=== PATIENT | male | born 1990 | race Caucasian/White ===

== ENCOUNTER 2018-10-24 06:23 | Inpatient (IN) ==
--- NOTE | 2018-10-24 07:11 | PROVIDER DOCUMENTATION ---
HPI-Chest Pain - General Chief Complaint: Chest Pain Stated Complaint: CP,INSECT BITE Time Seen by Provider: 10/24/18 06:52 Allergies/Adverse Reactions: Patient Allergies Allergy/AdvReac Type Severity Reaction Status Date / Time No Known Allergies Allergy Verified 10/24/18 07:09 Home Medications: Home Medication List Medication Instructions Recorded Confirmed Last Taken Type Fluticasone 50 Mcg Nasal [place] 1 spray INTRANASAL DAILY 10/24/18 10/24/18 Unknown History [Flonase] Melatonin 10 mg PO HS PRN PRN 10/24/18 10/24/18 Unknown History - History of Present Illness-CP Nature of Presenting Problem: Presents to the with complaints of central chest pain that woke him up from sleep. He states it feels like a tightening and goes up to his neck and down to his epigastric area. He endorses some SOB associated with it. He states this has never happened to him before. He denies any previous cardiac history, no stress test or cardiac cath. He denies any family history of early cardiac disease. He denies any diaphoresis, nausea, vomiting associated with it. He denies any new medications and denies any anabolic steroids or supplements. He did not try anything at home. He had ribs for dinner with a lot of BBQ sauce on it last night. He states that it is improving but is still there a little bit. He states he feels it all the time but does wax and wane. Nothing makes it better or worse. He states that he additionally was seen at an urgent care center for a bug bite on his buttocks and was given antibiotics that he thinks is doxycycline. He states that this is not bothering him. Location: reports: substernal, central Chest Pain Radiation: reports: neck, epigastric Quality of Pain: reports: tightness Severity in ED: moderate Onset/Duration: just prior to arrival Timing: still present, improving Context/Activities at Onset: reports: sleep Modifying Factors: improves with: nothing Review of Systems - Adult - REVIEW OF SYSTEMS - ADULT Constitutional: reports: no symptoms reported Eyes: reports: no symptoms reported Ears, Nose, Mouth & Throat: reports: no symptoms reported Cardiovascular: reports: chest pain Respiratory: reports: shortness of breath Genitourinary: reports: no symptoms reported Musculoskeletal: reports: no symptoms reported Integumentary: reports: no symptoms reported Neurological: reports: no symptoms reported Psychiatric: reports: no symptoms reported Endocrine: reports: no symptoms reported Hematologic/Lymphatic: reports: no symptoms reported Allergic/Immunologic: reports: no symptoms reported All Other Systems: Reviewed and Negative Past History - Adult - PAST MEDICAL HISTORY-ADULT Review of Records: reports: Old Records Reviewed, Nursing Assessment Review, Me dications Reviewed Physical Exam-General - PHYSICAL EXAM-ADULT Initial Vital Signs Reviewed: Yes - CONSTITUTIONAL General Appearance: appears well, alert, no apparent distress - EYES Eyes: PERRL/EOMI - HEAD, EARS, NOSE, MOUTH & THROAT HENMT: normocephalic/atraumatic - NECK Neck: non-tender, supple - RESPIRATORY Respiratory: chest non-tender, lungs clear, normal breath sounds - CARDIOVASCULAR Cardiovascular: normal peripheral pulses, bradycardia - GASTROINTESTINAL (ABDOMEN) Abdominal Exam: normal bowel sounds, non tender, soft - LYMPHATIC Lymphatic: no adenopathy - MUSCULOSKELETAL Back Exam: normal inspection Extremity: normal range of motion, non-tender, normal gait - SKIN Integumentary: normal color, warm/dry - NEUROLOGIC Neurologic: grossly normal - PSYCHIATRIC Psych/Mental Status: normal mood/affect, oriented x 3 - HEART Score HEART Score: History: Slightly Suspicious HEART Score: ECG: Non-Specific Repolarization Disturbance/LBBB/PM HEART Score: Age: < or = 45 Years HEART Score: Risk Factors for Atherosclerotic Disease: No Risk Factors Known HEART Score: Troponin: 1-3x Normal Limit Total HEART Score:: 2 Progress - PLAN OF CARE/RESULTS Progress/Plan/Lab Results: At recheck pt notes that his cp has nearly resolved and cardiology has been paged. Concern for lyme myocarditis discussed with PCP. Result Diagrams: 10/24/18 07:15 10/24/18 07:15 - EKG 1 Time of EKG reading by physician:: 06:52 EKG Read and Signed by:: Kasia Jeong EKG Interpretation (*Must complete 3 of following elements*): Abnormal (likely normal for this patient, young, athletic) Rate: 52 Rhythm: Sinus bradycardia ST Wave: normal - CONSULTS/PCP/HOSPITALIST Notification #1 *Consult/PCP/Hospitalist*: Dr Gill Time Discussed: 09:05 Consult Disposition: Will see in ED, Admit #2 Consult: Dr Hyatt Time Discussed: 09:05 Reason/Comments: agreed to consult - CHANGE OF SHIFT REPORT (ED Provider) 1 Report Given and Care Transferred to:: Dr Busch Time of Transfer: 07:00 Items Pending: Labs, XRAY Results Departure - Departure Date of Disposition Decision: 10/24/18 Time of Disposition Decision: 09:06 DIAGNOSIS: Chest pain, Tick bite, Elevated troponin, Substance abuse Disposition: ADMITTED INPATIENT 09 Certified Medical Emergency: Emergent Condition: Fair - Critical Care Note This patient required my direct & personal management of CC.: No Attestation - Physician/ KARLIE Attestation Patient care was provided by Advanced Practice Provider:: No The physician spent face to face time with patient:: Yes Advanced Practice Provider documentation review:: Supervising physician onsite and consulted in the evaluation and care of this patient. The physician did have a face to face encounter with the patient.
--- NOTE | 2018-10-24 07:18 | Diag Imaging Result Doc PS360 ---
EXAM: CHEST-2 VIEWS HISTORY: chest pain TECHNIQUE: Chest two views COMPARISON: None. FINDINGS: The lungs are well expanded. The heart is not enlarged. The vessels are not distended. There are no infiltrates. No pleural effusions. IMPRESSION: No acute abnormality. Electronically signed by Behzad Vizcarra 10/24/2018 7:16 AM
--- NOTE | 2018-10-24 07:41 | EKG Report ---
Test Performed on : 10/24/2018 06:51:05 AM Test Reason : chest pain Blood Pressure : / mmHG Vent. Rate : 052 BPM Atrial Rate : 052 BPM P-R Int : 132 ms QRS Dur : 092 ms QT Int : 400 ms P-R-T Axes : 040 010 020 degrees QTc Int : 372 ms Sinus bradycardia. Early repolarization Otherwise normal ECG No previous ECGs available Unconfirmed Result
[2018-10-24 07:42] LABS: BASO# 0.01 X1000 (0.0-0.2); BASO% 0.3 % (0.0-0.8); EOS# 0.07 X1000 (0.0-0.7); EOS% 2.2 % (0.0-10.0); HEMATOCRIT 36.8 % (42.0-52.0); HEMOGLOBIN 12.7 g/dL (14.0-18.0); LYMPH# 0.88 X1000 (1.2-3.4); LYMPH% 27.1 % (20.5-51.1); MCH 30.6 PG (27-31); MCHC 34.5 g/dL (33-37); MCV 88.7 FL (81-99); MONO# 0.46 X1000 (0.11-0.59); MONO% 14.2 % (1.7-9.3); MPV 10.6 FL (7.4-10.4); NEUT# 1.83 X1000 (1.4-6.5); NEUT% 56.2 % (42.2-75.2); PLT 100 X1000 (130-400); RBC 4.15 XMIL (4.7-6.1); RDW 13.1 % (11.5-14.5); WBC 3.25 X1000 (4.8-10.8)
[2018-10-24 07:56] LABS: URINE SOURCE CLEAN CATCH
[2018-10-24 08:00] LABS: AGAP 10; ALBUMIN 3.8 g/dL (3.5-5.0); ALKALINE PHOSPHATASE 58 U/L (32-122); AMYLASE 21 U/L (20-200); BUN 29 mg/dL (8-22); CALCIUM 8.5 mg/dL (8.8-10.2); CHLORIDE 105 mmol/L (98-107); COSMO 284; CREATININE 0.9 mg/dL (0.7-1.2); ESTIMATED GFR > 60; GLUCOSE 116 mg/dL (70-104); GOT 23 U/L (10-34); GPT 15 U/L (10-44); LIPASE 17 U/L (13-60); POTASSIUM 4.1 mmol/L (3.5-5.1); SODIUM 139 mmol/L (136-145); TCO2 24 mmol/L (25-35); TOTAL PROTEIN 5.7 g/dL (6.3-8.3)
[2018-10-24 08:12] LABS: BILIRUBIN URINE NEGATIVE (NEGATIVE); BLOOD URINE TRACE (NEGATIVE); COLOR YELLOW; GLUCOSE URINE NEGATIVE (NEGATIVE); KETONE URINE NEGATIVE (NEGATIVE); LEUKOCYTES URINE NEGATIVE (NEGATIVE); NITRITE URINE NEGATIVE (NEGATIVE); PROTEIN URINE TRACE mg/dL (NEGATIVE); SP GRAVITY URINE 1.032; TURBIDITY URINE CLEAR (CLEAR); UR AMPHETAMINES QUAL NONE DETECTED (NONE DETECT); UR BARBITUATES QUAL NONE DETECTED (NONE DETECT); UR BENZODIAZEPIN QUAL NONE DETECTED (NONE DETECT); UR CANNABINOIDS QUAL PRESUMPTIVE POSITIVE (NONE DETECT); UR COCAINE QUAL NONE DETECTED (NONE DETECT); UR METHADONE QUAL NONE DETECTED (NONE DETECT); UR OPIATES QUAL NONE DETECTED (NONE DETECT); UR OXYCODONE QUAL NONE DETECTED (NONE DETECT); UR PCP QUAL NONE DETECTED (NONE DETECT); UROBILINOGEN URINE NORMAL (NORMAL)
[2018-10-24 08:13] LABS: UR EPITHELIAL CELLS <10 /HPF (<10); URINE BACTERIA NEGATIVE /HPF; URINE RBC <10 /HPF (<10); URINE WBC <10 /HPF (<10)
--- NOTE | 2018-10-24 10:36 | HISTORY AND PHYSICAL ---
HISTORY: This is a 28-year-old, who a week ago or 10 days ago, he thinks he was bit by an insect. He did not see it, but had erythematous rash and a little fluctuation. He also noticed lymph node swelling in the right groin. He went to an ambulatory clinic, started on doxycycline, been on doxycycline 100 mg twice a day. He started to feel better, but then described headaches and he started having chest pain 24 hours ago, described as pressure and came to the emergency room. In the emergency room, he had sinus bradycardia. The rate was in the 50s. PAST MEDICAL HISTORY: Really has no significant past medical issues. I think he has had an episode of prostatitis. FAMILY HISTORY: Negative really for cardiac or pulmonary or renal diseases to the best of his knowledge. SOCIAL HISTORY: He is . He does smoke marijuana. No other illicit drugs reported. REVIEW OF SYSTEMS: General: No weight gain or loss. No fever or chills. HEENT: Unremarkable. Respiratory: No increased work of breathing or dyspnea. Cardiovascular: No chest pain or tachy palpitations until 24 hours ago. Endocrinologic/Hematologic: No significant history. Musculoskeletal/Neurologic: No significant complaints. PHYSICAL EXAMINATION: VITAL SIGNS: His temperature is 97.8 degrees, pulse 50 respirations 19, blood pressure 109/66. HEENT: Pupils are equal round. LUNGS: Clear in all lung hoff. CARDIOVASCULAR: Regular rate without murmur or S3. ABDOMEN: Soft. SKIN: Warm and dry. LABORATORY DATA: Hematocrit 36, platelet count was a 100,000. White blood cell count 3250. Sodium 139, potassium 4.1, chloride 105, BUN 29, creatinine 0.9, calcium 8.5, AST 23, ALT is 15, alkaline phosphatase 58, albumin is 3.8. He is positive on urine drug screen. He was negative for opiates, oxycodone, methadone, barbiturates, phencyclidine, amphetamines, benzodiazepines, and cocaine. Positive for cannabinoids. Urine is clear. His chest x-ray: No acute abnormality. His troponin just mildly elevated at 0.184 and 0.274. His shows some peaked T-waves in V2, V3, V4 and looks like early repolarization. ASSESSMENT AND PLAN: 1. Chest pain, questionable whether he has Lyme disease or tick related fever. I do not see any significant arrhythmia. I am going to go ahead and treat him with IV ceftriaxone, which is the drug of choice and I will give him 2 g IV q.24 hours. 2. He has got elevated troponin which is mild. His CK is unremarkable. We will get an echocardiogram and ask Cardiology to see. Suspect he will need a stress test. cc: Kevin Gill MD
[2018-10-24] MEDS: ROCEPHIN 2 GM in NS 50 ML IV SCH (12:27)
[2018-10-24] MEDS: NS 1,000 ML IV SCH ×2 (12:27→23:08)
[2018-10-24] MEDS: TYLENOL PO PRN ×2 (12:36→17:36)
[2018-10-24] MEDS ORDERED: NITROGLYCERIN 0.2 MG/HR PATCH TD PRN (12:47)
[2018-10-24] MEDS ORDERED: NITROGLYCERIN TOP PRN (12:57)
--- NOTE | 2018-10-24 13:01 | EKG Report ---
Test Performed on : 10/24/2018 12:28:25 PM Test Reason : Chest Pain Blood Pressure : / mmHG Vent. Rate : 053 BPM Atrial Rate : 053 BPM P-R Int : 142 ms QRS Dur : 094 ms QT Int : 408 ms P-R-T Axes : 034 066 057 degrees QTc Int : 382 ms Sinus bradycardia. with sinus arrhythmia. Early repolarization Otherwise normal ECG When compared with ECG of 24-OCT-2018 06:51, (Unconfirmed) Questionable change in QRS axis Confirmed by Jairo THOMPSON, Kevin Moscoso ([id number]) on 10/25/2018 7:28:41 PM
[2018-10-24 14:39] LABS: CK INDEX 8.4 (0.0-2.5); CK-MB 36.39 ng/mL (0.0-5.0)
[2018-10-24] MEDS: NICODERM PATCH TD SCH (17:28)
[2018-10-24] MEDS ORDERED: NORCO-7.5 PO ONE (19:32)
[2018-10-24] MEDS: DOXYCYCLINE PO SCH ×2 (20:35→22:18)
[2018-10-24] MEDS: MELATONIN PO SCH (20:35)
[2018-10-24] MEDS: ZOFRAN IV PRN (21:45)
[2018-10-24] MEDS ORDERED: MORPHINE IV PRN (22:43)
[2018-10-25 06:07] LABS: BASO# 0.01 X1000 (0.0-0.2); BASO% 0.3 % (0.0-0.8); EOS# 0.01 X1000 (0.0-0.7); EOS% 0.3 % (0.0-10.0); HEMATOCRIT 35.4 % (42.0-52.0); HEMOGLOBIN 12.1 g/dL (14.0-18.0); LYMPH# 0.95 X1000 (1.2-3.4); LYMPH% 31.6 % (20.5-51.1); MCH 30.5 PG (27-31); MCHC 34.2 g/dL (33-37); MCV 89.2 FL (81-99); MONO# 0.31 X1000 (0.11-0.59); MONO% 10.3 % (1.7-9.3); MPV 10.7 FL (7.4-10.4); NEUT# 1.73 X1000 (1.4-6.5); NEUT% 57.5 % (42.2-75.2); PLT 146 X1000 (130-400); RBC 3.97 XMIL (4.7-6.1); WBC 3.01 X1000 (4.8-10.8)
[2018-10-25 06:26] LABS: AGAP 8; ALB/GLOB RATIO 2.1; ALBUMIN 3.5 g/dL (3.5-5.0); ALKALINE PHOSPHATASE 55 U/L (32-122); BUN 17 mg/dL (8-22); CALCIUM 8.8 mg/dL (8.8-10.2); CHLORIDE 105 mmol/L (98-107); CK PROFILE 521 U/L (24-204); COSMO 280; CREATININE 0.8 mg/dL (0.7-1.2); ESTIMATED GFR > 60; GLUCOSE 115 mg/dL (70-104); GOT 65 U/L (10-34); GPT 20 U/L (10-44); MAGNESIUM 1.7 mg/dL (1.5-2.7); POTASSIUM 4.8 mmol/L (3.5-5.1); SODIUM 139 mmol/L (136-145); TCO2 26 mmol/L (25-35); TOTAL BILIRUBIN 0.27 mg/dL (0.20-1.00); TOTAL PROTEIN 5.2 g/dL (6.3-8.3)
[2018-10-25 07:09] LABS: CK INDEX 7.9 (0.0-2.5); CK-MB 41.27 ng/mL (0.0-5.0)
--- NOTE | 2018-10-25 07:32 | EKG Report ---
Test Performed on : 10/25/2018 06:56:49 AM Test Reason : chest pain Blood Pressure : / mmHG Vent. Rate : 056 BPM Atrial Rate : 056 BPM P-R Int : 148 ms QRS Dur : 096 ms QT Int : 404 ms P-R-T Axes : 043 063 056 degrees QTc Int : 389 ms Sinus bradycardia. Acute pericarditis Abnormal ECG When compared with ECG of 24-OCT-2018 22:37, (Unconfirmed) ST less elevated in Lateral leads Confirmed by Jairo THOMPSON, Kevin Moscoso ([id number]) on 10/25/2018 7:29:29 PM
--- NOTE | 2018-10-25 07:39 | EKG Report ---
Test Performed on : 10/24/2018 10:37:59 PM Test Reason : chest pain Blood Pressure : / mmHG Vent. Rate : 061 BPM Atrial Rate : 061 BPM P-R Int : 154 ms QRS Dur : 092 ms QT Int : 404 ms P-R-T Axes : 036 050 045 degrees QTc Int : 406 ms Normal sinus rhythm. Acute pericarditis Abnormal ECG When compared with ECG of 24-OCT-2018 12:28, (Unconfirmed) ST elevation now present in Anterior leads Confirmed by Jairo THOMPSON, Kevin Moscoso ([id number]) on 10/25/2018 7:29:03 PM
[2018-10-25] MEDS: DOXYCYCLINE PO SCH ×2 (10:02→20:42)
[2018-10-25] MEDS: NICODERM PATCH TD SCH (10:02)
[2018-10-25] MEDS: NS 1,000 ML IV SCH (10:02)
[2018-10-25] MEDS ORDERED: FIORICET PO PRN (10:18)
[2018-10-25] MEDS: ZOFRAN IV PRN (10:30)
--- NOTE | 2018-10-25 10:38 | PROGRESS NOTE ---
DATE: 10/25/2018 SUBJECTIVE: Mr. Hernandez had some more chest pain last night, and he got some morphine. His headache is better. He is feeling better this morning. OBJECTIVE: On exam he remains afebrile, temperature 97.8, pulse 74, respirations 10, blood pressure 103/55. Blood pressures have been between 97-104/46-71. Pupils equal and round. Lungs are clear in all lung hoff. Cardiovascular regular rhythm and rate without murmur or S3. Abdomen is soft. Skin is warm and dry. CVP less than 6 cm. REPEAT LAB WORK: White count 3010, hematocrit 35, platelet count 146,000, sodium 139, potassium 4.8, chloride 105, BUN 17, creatinine 0.8. Troponin had climbed from 0.184, next level was 0.491 and then 0.555. Note that proBNP was only 157. Albumin 3.5. ASSESSMENT AND PLAN: Concern for possible myocarditis and limes disease in particular. Titers are pending. Dr. Boucher is following. Dr. Hansel Hyatt is following as well. I think the plan is for a test this morning. I think he is going to get a cardiac stress test. We will discuss with Dr. Hyatt. I am going to continue combination of ceftriaxone and doxycycline. He says he is hungry. He has been held n.p.o. last night. cc: Kevin Gill MD
[2018-10-25] MEDS: ROCEPHIN 2 GM in NS 50 ML IV SCH (10:47)
--- NOTE | 2018-10-25 11:51 | EKG Report ---
Test Performed on : 10/25/2018 11:36:24 AM Test Reason : chest pain Blood Pressure : / mmHG Vent. Rate : 062 BPM Atrial Rate : 062 BPM P-R Int : 160 ms QRS Dur : 090 ms QT Int : 408 ms P-R-T Axes : 023 062 049 degrees QTc Int : 414 ms Normal sinus rhythm. ST elevation, consider early repolarization, pericarditis, or injury Abnormal ECG When compared with ECG of 25-OCT-2018 06:56, (Unconfirmed) No significant change was found Confirmed by Jairo THOMPSON, Kevin Moscoso ([id number]) on 10/25/2018 7:30:04 PM
[2018-10-25] MEDS ORDERED: SOLU-MEDROL IV ONE (11:52)
[2018-10-25] MEDS: COLCRYS PO SCH ×2 (12:13→20:42)
[2018-10-25] MEDS ORDERED: PROTONIX PO ONE (18:04)
[2018-10-25] MEDS: MOTRIN PO SCH (20:42)
[2018-10-25] MEDS: MELATONIN PO SCH (20:42)
[2018-10-26] MEDS: NS 1,000 ML IV SCH ×2 (01:22→12:27)
[2018-10-26] MEDS: MOTRIN PO SCH ×2 (06:00→12:31)
[2018-10-26] MEDS ORDERED: PROTONIX PO SCH (07:00)
[2018-10-26] MEDS ORDERED: LEXISCAN ONE (08:23)
[2018-10-26] MEDS: DOXYCYCLINE PO SCH (10:52)
[2018-10-26] MEDS: COLCRYS PO SCH (10:53)
[2018-10-26] MEDS: NICODERM PATCH TD SCH (10:53)
[2018-10-26] MEDS: ROCEPHIN 2 GM in NS 50 ML IV SCH (10:53)
[2018-10-26 11:42] LABS: BASO# 0.02 X1000 (0.0-0.2); BASO% 0.3 % (0.0-0.8); HEMATOCRIT 35.6 % (42.0-52.0); HEMOGLOBIN 12.2 g/dL (14.0-18.0); LYMPH% 22.5 % (20.5-51.1); MCH 30.4 PG (27-31); MCHC 34.3 g/dL (33-37); MCV 88.8 FL (81-99); MONO# 0.59 X1000 (0.11-0.59); MONO% 8.8 % (1.7-9.3); MPV 10.5 FL (7.4-10.4); NEUT# 4.57 X1000 (1.4-6.5); NEUT% 68.4 % (42.2-75.2); PLT 182 X1000 (130-400); RBC 4.01 XMIL (4.7-6.1); RDW 13.2 % (11.5-14.5); WBC 6.68 X1000 (4.8-10.8)
[2018-10-26 13:01] LABS: LYME DISEASE SCREEN SEE COMMENTS
--- NOTE | 2018-10-26 14:11 | PROGRESS NOTE ---
DATE: 10/26/2018 SUBJECTIVE: Mr. Hernandez had a pretty uneventful night, less pain. He is going to finish up his Lexiscan myocardial perfusion test. OBJECTIVE: Temperature 97.8 degrees, pulse 62, respirations 15, blood pressure 111/52. Pupils are equal and round. Lungs are clear in all lung hoff. Cardiovascular: Regular rate without murmur or S3. Abdomen is soft. Skin is warm and dry. Urine output 2400 mL. ASSESSMENT AND PLAN: Myocarditis, not sure of etiology. I want to finished the Lexiscan test. Echocardiogram, I believe has been read. His labs, his CK yesterday was 521, troponin had been elevated at 0.555. I think I will check another set today. We will discuss with Cardiology. We are waiting on his Lyme titers and possibility of going home soon. cc: Kevin Gill MD
--- NOTE | 2018-10-26 14:40 | CONSULTATION ---
DATE OF CONSULTATION: 10/24/2018 IMPRESSION: 1. Mild nonspecific elevation of troponin with some associated chest tightness. Consider possibility of myocarditis in setting of systemic infectious process. 2. Recent infectious process with possible recent tick bite with subsequent recurrent headaches, myalgias, and fatigue as well as lymphadenopathy right groin with tick bite in right lateral thigh. Bite is presumed to be secondary to a tick bite, as this was not confirmed. Consider the possibility of ehrlichiosis or Lyme disease, although, the patient's rash is not typical of Lyme disease. The patient may have associated myocarditis. RECOMMENDATIONS: 1. Echocardiography. 2. Infectious Disease consultation. HISTORY: This 28-year-old white male with no prior medical history was admitted because of chest tightness. Troponin was very mildly elevated and nonspecific range. Cardiology was consulted. He relates that approximately 10 days ago he noticed a insect or tick bite in the right lateral thigh. He did not pull a tick off nor see a tick. Not long thereafter, he started having malaise and myalgias as well as headaches. He developed adenopathy in right groin as well. He sought outpatient evaluation [facility] and was started on doxycycline. This was several days ago. This morning, he awoke with some tightness in the chest of [id number] intensity. This persisted and prompted him to come to the emergency room. His chest tightness resolved but has reemerged briefly. He smokes an occasional cigarette. There is no family history of early coronary artery disease. PAST MEDICAL HISTORY: 1. Occasional migraine headaches. 2. Previous episode of prostatitis. ALLERGIES: He has no known drug allergies. MEDICATIONS PRIOR TO ADMISSION: As listed. SOCIAL HISTORY: He is . He smokes occasional marijuana and smokes an occasional cigarette. He denies any other recreational drug use. 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 FAMILY HISTORY: Negative for premature coronary artery disease. REVIEW OF SYSTEMS: Pulmonary: Negative. Gastrointestinal: Negative. Constitutional: Noteworthy for myalgias and fatigue. The remainder of the review of systems is negative/noncontributory. Fourteen total systems were reviewed. PHYSICAL EXAMINATION: General: This is an adult white male in no distress. Vital signs: Blood pressure 111/75, heart rate 58, oxygen saturation 100% on room air. HEENT: Extraocular muscles appear intact. Mucous membranes are moist. Neck: Supple without jugular venous distention. There are no carotid bruits. Chest: Clear to auscultation. Cardiac: Exams a regular rate and rhythm without appreciable murmur, rub, or gallop. Abdomen: Soft. Bowel sounds are normal. Extremities: Without edema. There is a small insect bite in right lateral thigh with a small area of erythema around it. There is no central clearing. Size of lesion is approximately that of a dime. Neurologic: Exam reveals him to be alert and fully oriented. Speech is fluent. He moves all 4 extremities equally well. Skin: Warm and dry. Psychiatric: Exam reveals mood to be appropriate. LABORATORY DATA: Includes a white blood cell count 3.25, hematocrit 36.8, hemoglobin 12.7, platelet count 100. D-dimer 0.34. Sodium 139, potassium 4.1, chloride 105, carbon dioxide 24, BUN 29, creatinine 0.9, glucose 116. CPK 251. Troponin T initially 0.184, followup troponin T 0.274. A 12-lead EKG demonstrates sinus rhythm and normal early repolarization. cc: MD Kevin Martinez MD
[2018-10-26 15:11] VITALS: BP 113/63
--- NOTE | 2018-10-26 16:32 | DISCHARGE SUMMARY ---
ADMISSION DATE: 10/24/2018 DISCHARGE DATE: 10/26/2018 HISTORY AND HOSPITAL COURSE: This is a 28-year-old who, about 10 days prior to coming in on 10/24/2018, noted he had been bitten by an insect, not sure what it was. It was in the right hip, noticed it while he was in the shower. There was some fluctuation. He did have a red rash around it. He did not describe a target rash, but there was erythema around it and possibly it was a tick. He did have some adenopathy appreciated in the right groin femoral fossa. He was put on doxycycline at an outpatient clinic 100 mg twice a day, but developed some headaches and started having some chest pain described as pressure. In the emergency room, EKG showed some repolarization. No ST-segment changes that were significant for suggested ischemia. Dr. Hansel Hyatt saw in consultation. [place] he had mild nonspecific elevation of troponin associated with chest tightness. Consider possibility of myocarditis. These enzymes continued to elevate and felt he did have significant myocarditis. Lyme titers were sent off. I do not have those values back. The adenopathy in the right groin seemed to resolve. His headache seemed to resolve and he had less chest tightness. We put him on some colchicine and he had relief of chest pain. Lexiscan myocardial perfusion scan was done. An echocardiogram was done and these were consistent with possible myocarditis. He remained afebrile. [place] like we could let him go home. DISCHARGE MEDICATIONS: I will let him have some Fioricet p.r.n. for his headache. He will keep him on the doxycycline 100 mg b.i.d. for another 2 weeks and this has been electronically sent in. He will continue his melatonin 5 mg at bedtime. I want to follow him back in my office in 2 weeks. He will follow up with Cardiology as well. cc: Kevin Gill MD
--- NOTE | 2018-10-26 16:35 | Diag Imaging Result Document ---
PROCEDURE NAME: MYOCARDIAL PERF SCAN, STR/REST - 10/25/2018 LEXISCAN SESTAMIBI INTERPRETATION: SUMMARY: The patient was administered 30.4 millicuries of technetium labeled sestamibi on 10/25/2018, after which resting cardiac images were obtained. The patient returned for Lexiscan sestamibi study on 10/26/2018. The patient was administered Lexiscan 0.4 mg intravenously, after which the heart rate went from 82 beats per minute to 106 beats per minute, while the blood pressure went from 115/57 to 109/65. With Lexiscan, the patient denied chest discomfort. Following the administration of Lexiscan, the patient was administered 31.2 mCi of technetium-99m sestamibi, after which gated stress cardiac images were obtained. Baseline ECG demonstrated sinus rhythm and nonspecific T-wave abnormality. With Lexiscan, there were no diagnostic ST-segment changes. SPECT images were reconstructed in the short, horizontal long, and vertical long axes. Review of these images demonstrated homogeneous uptake of radiopharmaceutical on both stress and resting images. Gated images demonstrate a calculated left ventricular ejection fraction of 73% with symmetrical wall motion/thickening. CONCLUSIONS: 1. Adequate response to Lexiscan. 2. Clinically negative for chest pain. 3. Electrocardiographically, there were no diagnostic ST-segment changes on ECG following the administration of Lexiscan. 4. Normal Lexiscan sestamibi images. cc: MD Ira Martinez PA
--- NOTE | 2018-10-26 16:55 | PROGRESS NOTE ---
DATE: 10/26/2018 SUBJECTIVE: Patient continues without chest discomfort or dyspnea. Reports feeling better. OBJECTIVE: VITAL SIGNS: Blood pressure 103/77, heart rate 70 and regular. Oxygen saturation 99% on room air. There is no significant jugular venous distention. Chest: Clear to auscultation bilaterally. Cardiac Exam: Reveals a regular rate and rhythm without appreciable rub or gallop. There is no evidence of peripheral edema. LABORATORY DATA: Includes a white blood cell count 6.68, hematocrit 35.6, hemoglobin 12.2, platelet count 182. Lexiscan sestamibi study demonstrated no evidence of inducible myocardial ischemia. IMPRESSION: Suspect myocarditis in association with the patient's infectious process. There may also be a component of pericarditis. Patient's chest symptoms have resolved. RECOMMENDATIONS: 1. Continue treatment for suspected tick-borne infectious process. 2. Patient appears clinically stable from a cardiovascular standpoint. Should be able to go home soon. cc: MD Kevin Martinez MD
--- NOTE | 2018-10-26 17:08 | INFECTIOUS DISEASE CONSULT REP ---
DATE: 10/24/2018 CONCLUSION: Dr. Villagomez paged me about the possibility of Lyme disease causing the patient's cardiac problem that he was admitted with. I think it is a possibility but very unlikely because Lyme disease is infrequently acquired in [place]. Possibly some other tick-borne illness may be involved in some of the patient's symptoms that he has been having recently after he noticed that there was a tick on him. RECOMMENDATIONS: I agree with placing the patient on Rocephin. I am also going to start the patient on doxycycline. I have also ordered the tick illness panel. DISCUSSION: The patient tells me that approximately 10 days ago, he noticed that there was an insect bite on his right leg. He developed a swelling in his right groin. He also had diaphoresis, fever, and a headache. Today, he had chest pain and a tightness sensation also in the chest which radiated into his throat. Patient's labs thus far show a CBC with a white count of 3250, hemoglobin 12.7, and platelet count 100,000. Creatinine is 0.9. GFR is greater than 60. Liver function studies are normal. CK is 435, troponin T is 0.491. Urinalysis showed no white cells or bacteria. Drug screen was positive for cannabinoids. PAST MEDICAL HISTORY/REVIEW OF SYSTEMS: Eyes and Ears: No trouble hearing or seeing. Cardiac: See present illness. GI: No nausea, vomiting, or diarrhea. : No dysuria or flank pain. Endocrine: The patient does not have diabetes or thyroid disease. Integument: No rashes. Bones, Joints, and Muscles: No joint swelling. No muscle aching. PREVIOUS HOSPITALIZATIONS AND OPERATIONS: He has had a cyst removed from his back and a mole removed from his head. MEDICAL DISEASES: Negative for diabetes mellitus and hypertension. INFECTIOUS DISEASE HISTORY: Negative for pneumonia and UTI. The patient did tell me he is an avid sabi and he has had multiple tick bites in the past. FAMILY HISTORY: Positive for Alzheimer's disease. Negative for stroke or myocardial infarction. SOCIAL HISTORY: [place] He sm[place] cigarettes. He drinks alcoholic beverages and occasionally uses cannabinoids. He is . He has a dog as a pet. He is an avid sabi. 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 MEDICATIONS: The only home medication the patient is on is Flonase. PHYSICAL EXAMINATION: Vital Signs: Temperature is 97.7 degrees, pulse 71, respirations 15, blood pressure 100/62, patient is 5 feet 11 inches tall, and weighs 77.1 kg. General: The patient is a young male who looks healthy. He is in no acute distress. Head, Eyes, Ears, Nose, and Throat: He can hear my spoken words and see near objects. He does not have any white coating on his tongue. His sinuses are not tender. Neck: No meningismus. Lungs: Clear to auscultation. Cardiovascular: Heart rate is regular. Abdomen: Soft and nontender. Extremities: On the lateral aspect of the upper right leg, there is a small, erythematous, indurated area with a small brown eschar in the center which is where the patient had his tick bite. Neurologic: The patient is alert. He can move his extremities. There is no tremor. His sensation is intact to touch. His memory as regarding his medical history is intact. Integument: No rash other than the finding on the patient's right leg. Thank you for the consult. cc: MD Kevin Dailey MD
--- NOTE | 2018-10-26 20:57 | ECHO REPORT ---
ORDER DATE: 10/24/2018 M-MODE MEASUREMENTS: Left ventricle end diastole: 5.0. Left ventricle end systole: 4.1. Posterior wall: 0.7. Interventricular septum: 0.7. Left atrium: 2.8. Aortic diameter: 3.1. SUMMARY OF 2-DIMENSIONAL IMAGIN. Left ventricular function is normal with an ejection fraction of 64%. The left ventricular chamber is not dilated. 2. The atria appear to be normal. 3. The right ventricle appears to be normal. 4. The aortic valve has 3 cusps. They open normally. Color flow mapping unremarkable. 5. The inferior vena cava is not dilated. 6. There is no pericardial effusion. 7. The mitral valve looks normal. Color flow mapping unremarkable. 8. Pulsed wave Doppler of mitral inflow is normal. 9. Tissue Doppler of septal and lateral mitral annulus averages 17 cm. 10.There is no diastolic dysfunction. 11.The pulmonic valve is normal. Color flow mapping is unremarkable. 12.The tricuspid valve is normal. Color flow mapping unremarkable. Pulmonary pressure is normal, estimated at 24 mmHg. SUMMARY: This echocardiographic study appears to be well within normal limits. cc: MD Kevin Urban MD
--- NOTE | 2018-10-26 21:37 | PROGRESS NOTE ---
DATE: 10/25/2018 SUBJECTIVE: The patient continues without further chest discomfort. He reports feeling better today. OBJECTIVE: Blood pressure 114/58, heart rate 81, oxygen saturation 99% on room air. There is no significant jugular venous distention. Chest is clear to auscultation. Cardiac exam reveals a regular rate and rhythm without appreciable murmur, rub or gallop. There is no evidence of peripheral edema. LABORATORY DATA: Includes a white blood cell count of 3.01, hematocrit 35.4, hemoglobin 12.1, platelet count 146,000. Sodium 139, potassium 4.8, chloride 105, carbon dioxide 26, BUN 17, creatinine 0.8. CPK 521, with CPK-MB of 41 and CPK-MB index 7.9, and a troponin T of 0.555. TSH 1.6. DIAGNOSTIC DATA: Echocardiography preliminary indicates normal left ventricular ejection fraction without wall motion abnormality. There is no pericardial effusion. Resting myocardial perfusion study demonstrates homogeneous uptake of radiopharmaceutical and normal perfusion at rest. IMPRESSION: Suspect myocarditis and possible associated pericarditis as component of systemic infectious process, probably related to tick bite. Myocardial perfusion normal at rest. Echocardiography confirms normal left ventricular ejection fraction. The patient is low risk for obstructive coronary disease. RECOMMENDATIONS: 1. Arrange Lexiscan sestamibi study in a.m. 2. Continue antibiotic coverage for tickborne illness as you are doing. 3. Continue nonsteroidal anti-inflammatories for suspected pericarditis. cc: MD Kevin Martinez MD
--- NOTE | 2018-10-27 17:50 | INFECTIOUS DISEASE PROGRESS NO ---
DATE: 10/25/2018 ADDENDUM: LABS AND X-RAYS: There is no new radiographic study this morning. The patient's CBC shows a white count of 3010, hemoglobin of 12.1 and platelet count of 146,000. Creatinine is 0.8, GFR greater than 60. CK-MB is 41.27. cc: MD Kevin Dailey MD
--- NOTE | 2018-10-27 18:17 | INFECTIOUS DISEASE PROGRESS NO ---
DATE: 10/25/2018 PRESENT ILLNESS: The patient may have a tick-related infection. MEDICATIONS: The patient is receiving IV Rocephin and p.o. doxycycline. PHYSICAL EXAMINATION: Vital Signs: Temperature 97.9 degrees, pulse 77, respirations 21, blood pressure 97/46. General: This is a healthy-appearing young male. He is in no acute distress. HEENT: He can hear my spoken words and see near objects. He does not have any white patches on his tongue. Neck: No meningismus. Lungs: Clear to auscultation. Cardiovascular: Regular heart rate. Abdomen: Soft and nontender. Neurologic: The patient is awake. He can move his extremities. He is able to walk. There is no tremor. His sensation is intact to touch. His memory as I tested it yesterday seemed to be intact regarding his medical history. ASSESSMENT AND PLAN: The patient may have a tick-related illness. The patient did have a tick bite on his right thigh. My plan is to continue doxycycline for a full 2 weeks. I think the patient's Rocephin can be discontinued in a couple of days. Comorbidities: The patient is an avid sabi and frequently is outside, which increases his risk of having a tick on him. cc: MD Kevin Dailey MD
== END 2018-10-26 16:35 | disposition home or self-care (01) | DRG 316 ==
LOC: ED 06:23 → 3N 06:24 → 3S 14:24
PROVIDERS: ADMIT Emergency Medicine; ATTEND Emergency Medicine
CPT/HCPCS: 71020; 71046; 78452; 80053; 80101; 80301; 80307; 80324; 80345; 80346; 80353; 80358; 80361; 80365; 81001; 82150; 82550; 82553; 83690; 83735; 83880; 83992; 84443; 84484; 85025; 85379; 85651; 86140; 86618; 86666; 86753; 93005; 93010; 93017; 93306; 94761; A9270; A9500; G0431; G0434; G0479; G0480; J0696; J2270; J2405; J2785; J2930; J7030